=== PATIENT | female | born 1955 | race Caucasian/White ===

== ENCOUNTER → 2018-09-22 | Outpatient (CLI) | payer OTHER | END | disposition home or self-care (01) | LOC: CFH 09:09 | PROVIDERS: ATTEND Nurse Practitioner Family | DX: R06.09 Other forms of dyspnea (principal); R05 Cough; R09.89 Other specified symptoms and signs involving the circulatory and respiratory systems | CPT/HCPCS: 71046 ==

== ENCOUNTER → 2018-10-08 | Outpatient (CLI) | payer OTHER ==
[~2018-10-08] MED LIST: ALPR-475 PO; CARI350T PO; ESTR0.5T PO; MECL100C PO; THYR30TA PO
== END | disposition home or self-care (01) ==
LOC: CFH 15:51
PROVIDERS: ATTEND Family Medicine
DX: S76.112A Strain of left quadriceps muscle, fascia and tendon, initial encounter (principal); M25.462 Effusion, left knee; M22.42 Chondromalacia patellae, left knee; X58.XXXA Exposure to other specified factors, initial encounter; Y93.89 Activity, other specified; Y92.89 Other specified places as the place of occurrence of the external cause; Y99.8 Other external cause status

== ENCOUNTER 2018-10-14 12:30 | Day surgery (SDC) | payer OTHER ==
[~2018-10-14] VITALS: Ht 162.6 cm; Wt 67.4 kg
[2018-10-14] MEDS ORDERED: LACTATED RINGERS 1,000 ML IV SCH (13:30)
[2018-10-14 13:34] VITALS: BP 108/69
[2018-10-14] MEDS ORDERED: BUPIVACAINE/PF-EPI 0.5% 1:200K ONE (14:23)
[2018-10-14] MEDS ORDERED: CEFAZOLIN 1,000 MG ONE (14:44)
[2018-10-14] MEDS ORDERED: ONDANSETRON 2MG/ML, 2ML ONE (14:44)
[2018-10-14] MEDS ORDERED: MIDAZOLAM 1 MG/ML, 2ML ONE (14:44)
[2018-10-14] MEDS ORDERED: FENTANYL PF 250 MCG/5ML ONE (14:44)
[2018-10-14] MEDS ORDERED: DEXAMETHASONE 4 MG/ML, 5ML ONE (14:44)
[2018-10-14] MEDS ORDERED: TRANEXAMIC ACID 100 MG/ML, 10ML ONE (14:56)
[2018-10-14] MEDS ORDERED: BUPIVACAINE/PF 0.25% ONE (14:56)
[2018-10-14] MEDS ORDERED: SUCCINYLCHOLINE 20 MG/ML, 10ML ONE (15:08)
[2018-10-14] MEDS ORDERED: PROPOFOL 10 MG/ML, 20ML ONE (15:09)
[2018-10-14] MEDS ORDERED: HYDROmorphone 2 MG/ML, 1ML IVPush PRN (15:30)
[2018-10-14] MEDS ORDERED: MORPHINE SULFATE 4 MG/ML, 1ML IVPush PRN (15:30)
[2018-10-14] MEDS ORDERED: HALOPERIDOL 5 MG/ML IV PRN (15:30)
[2018-10-14] MEDS ORDERED: PROMETHAZINE 25 MG/ML, 1ML IV PRN (15:30)
[2018-10-14] MEDS ORDERED: PROMETHAZINE 12.5 MG SUPP PR PRN (15:30)
[2018-10-14] MEDS ORDERED: hydrALAzine 20 MG/ML, 1ML IV PRN (15:30)
[2018-10-14] MEDS ORDERED: ALBUTEROL SULFATE 2.5 MG/3 ML NPPB PRN (15:30)
[2018-10-14] MEDS ORDERED: DIAZEPAM 5 MG/ML, 2ML IVPush PRN (15:30)
[2018-10-14] MEDS ORDERED: LABETALOL 5MG/ML, 20ML IV PRN (15:30)
[2018-10-14] MEDS ORDERED: ONDANSETRON 2MG/ML, 2ML IV PRN (15:30)
[2018-10-14] MEDS ORDERED: MIDAZOLAM 1 MG/ML, 2ML IV PRN (15:30)
[2018-10-14] MEDS ORDERED: EPHEDRINE 50 MG/ML, 1ML IVPush PRN (15:30)
[2018-10-14] MEDS ORDERED: ONDANSETRON ODT 8 MG PO PRN (15:30)
[2018-10-14] MEDS ORDERED: OXYcodone 5 MG/5 ML ORAL.SOL UDC PO PRN (15:30)
[2018-10-14] MEDS ORDERED: FENTANYL PF 100 MCG/2ML ONE (16:04)
[2018-10-14] MEDS ORDERED: OXYcodone 5 MG/5 ML ORAL.SOL UDC ONE (16:05)
[2018-10-14] MEDS: FENTANYL PF 100 MCG/2ML IV PRN ×2 (16:15→16:25)
[2018-10-14] MEDS ORDERED: PROMETHAZINE 25 MG/ML, 1ML ONE (16:19)
[2018-10-14] MEDS ORDERED: MEPERIDINE/PF 25MG/ML,1ML ONE (16:28)
[2018-10-14] MEDS ORDERED: hydrALAzine 20 MG/ML, 1ML ONE (16:45)
[2018-10-14] MEDS: MEPERIDINE/PF 25MG/0.5ML IVPush PRN ×2 (16:45→17:00)
== END 2018-10-14 19:00 | disposition home or self-care (01) ==
LOC: OUT 12:30
PROVIDERS: ATTEND Orthopaedic Surgery
DX: S76.192A Other specified injury of left quadriceps muscle, fascia and tendon, initial encounter (principal); E03.9 Hypothyroidism, unspecified; F41.9 Anxiety disorder, unspecified; X58.XXXA Exposure to other specified factors, initial encounter; Y93.9 Activity, unspecified; Y92.89 Other specified places as the place of occurrence of the external cause; Y99.8 Other external cause status; Z88.6 Allergy status to analgesic agent; Z88.1 Allergy status to other antibiotic agents; Z88.0 Allergy status to penicillin; Z88.8 Allergy status to other drugs, medicaments and biological substances; Z87.891 Personal history of nicotine dependence; Z72.89 Other problems related to lifestyle
CPT/HCPCS: 27385; 64447; 93005; J0330; J0360; J0690; J1100; J2175; J2250; J2405; J2550; J2704; J3010; J3360; J3490; Q2026; Q4118